=== PATIENT | female | born 1990 | race Caucasian/White ===

== ENCOUNTER 2020-12-29 19:15 | Emergency (ER) | payer MEDICAID ==
[~2020-12-29] VITALS: Ht 162.6 cm; Wt 44.9 kg
[2020-12-29 20:06] LABS: BASOPHILS # (AUTO) 0.1 X10'3 (0-0.2); BASOPHILS % (AUTO) 0.9 % (0-1); EOSINOPHILS # (AUTO) 0.2 X10'3 (0-0.9); EOSINOPHILS % (AUTO) 4.3 % (0-6); HEMOGLOBIN 13.3 g/dl (12.0-16.0); LYMPHOCYTES # (AUTO) 2.3 X10'3 (1.1-4.8); LYMPHOCYTES % (AUTO) 42.5 % (21-51); MEAN CORPUSCULAR HEMOGLOBIN 28.9 PG (27.0-31.0); MEAN CORPUSCULAR HGB CONC 33.2 g/dL (33.0-36.5); MEAN CORPUSCULAR VOLUME 87.2 FL (78-98); MEAN PLATELET VOLUME 8.7 FL (7.4-10.4); MONOCYTES # (AUTO) 0.4 X10'3 (0-0.9); MONOCYTES % (AUTO) 6.6 % (2-12); NEUTROPHILS # (AUTO) 2.5 X10'3 (1.8-7.7); NEUTROPHILS % (AUTO) 45.7 % (42-75); PLATELET COUNT 314 X10'3 (140-440); RED BLOOD COUNT 4.59 X10'6 (4.20-5.60); RED CELL DISTRIBUTION WIDTH 13.3 % (11.5-14.5); WHITE BLOOD COUNT 5.5 X10'3 (4.5-11.0)
[2020-12-29 20:28] LABS: ALANINE AMINOTRANSFERASE 13 U/L (12-78); ALBUMIN 4.3 G/DL (3.4-5.0); ALBUMIN/GLOBULIN RATIO 1.4 (1.1-1.5); ALKALINE PHOSPHATASE 73 IU/L (46-116); ANION GAP 14 (8-16); ASPARTATE AMINO TRANSFERASE 18 U/L (10-37); BILIRUBIN,TOTAL 0.6 MG/DL (0.1-1.0); BLOOD UREA NITROGEN 6 MG/DL (7-18); BUN/CREATININE RATIO 6.5 (6.6-38.0); CALCIUM 8.9 MG/DL (8.5-10.1); CHLORIDE 105 MMOL/L (99-107); CREATININE 0.92 MG/DL (0.40-0.90); ETHANOL < 0.010 GM/DL (0.0-0.010); GLUCOSE 95 MG/DL (70-104); POTASSIUM 3.4 MMOL/L (3.5-5.1); SODIUM 142 MMOL/L (135-145); TOTAL CARBON DIOXIDE 23.5 MMOL/L (24-32); TOTAL PROTEIN 7.3 G/DL (6.4-8.2); eGFR 73 ML/MIN
[2020-12-29 20:29] LABS: ACETAMINOPHEN < 2.0 UG/ML (10-30)
[2020-12-29] MEDS ORDERED: normal saline 1000ML IV soln IVB ONE (20:45)
[2020-12-29 21:53] LABS: URINE HCG NEGATIVE (NEG)
[2020-12-29 22:03] LABS: URINE AMPHETAMINE SCREEN NEGATIVE (Neg); URINE BARBITUATE SCREEN NEGATIVE (Neg); URINE BENZODIAZEPINES SCREEN NEGATIVE (Neg); URINE CANNABINOID SCREEN POSITIVE (Neg); URINE COCAINE SCREEN NEGATIVE (Neg); URINE METHADONE SCREEN NEGATIVE (Neg); URINE OPIATE SCREEN NEGATIVE (Neg); URINE PHENCYCLIDINE SCREEN NEGATIVE (Neg)
--- NOTE | 2020-12-29 23:47 | NUR ---
RECEIVED PATIENT AMBULATING WITH RN FROM MAIN ER ALERT ORIENTED X4,NO COMPLAIN OF PAIN,NO RESPIRATORY DISTRESS,NO SUICIDAL IDEA AT THIS TIME,WILL MONITORED.
[2020-12-30] MEDS ORDERED: VENL75CA61 PO (01:09)
[2020-12-30] MEDS ORDERED: VENL150C58 PO (01:09)
[2020-12-30] MEDS ORDERED: TOPI25TA49 PO (01:09)
--- NOTE | 2020-12-30 06:37 | NUR ---
Patient sleeping on right side. No distress observed. Continue to monitor.
[2020-12-30] MEDS ORDERED: venlafaxine XR 75mg capsule (Q24H) PO SCH ×2 (08:00→21:00)
--- NOTE | 2020-12-30 08:20 | NUR ---
Patient eating breakfast. No distress observed. Continue to monitor.
--- NOTE | 2020-12-30 10:10 | NUR ---
Note raheel in ED - 12/30/20 at 1012 by TREY at bedside. Patient and touchy/feely. No distress observed. Continue to monitor.
--- NOTE | 2020-12-30 10:49 | NUR ---
Patient's boyfrient at bedside. No distress observed. Continue to monitor.
--- NOTE | 2020-12-30 10:55 | NUR ---
TIANA Marino, speaking with patient and boyfriend. Continue to monitor.
--- NOTE | 2020-12-30 12:21 | NUR ---
5150 placed on patient. Patient now sleeping on right side. Continue to monitor.
--- NOTE | 2020-12-30 13:42 | NUR ---
Patient is sitting up and eating lunch. No distress observed.
--- NOTE | 2020-12-30 15:35 | NUR ---
Patient sleeping. No distress observed. Continue to monitor.
[2020-12-30 16:15] LABS: CLARITY,URINE SLIGHTLY CLOUDY (Clear); COLOR,URINE STRAW (Yellow); GLUCOSE, URINE NEGATIVE (Neg); KETONES,URINE NEGATIVE (Neg); LEUKOCYTE ESTERASE ,URINE NEGATIVE (Neg); NITRITES, URINE NEGATIVE (Neg); OCCULT BLOOD,URINE NEGATIVE (Neg); PH,URINE 5.5 (4.8-8.0); PROTEIN,URINE NEGATIVE (Neg); UROBILINOGEN,URINE 0.2 E.U/dL (0.2-1.0)
[2020-12-30 16:20] LABS: UA COLLECTION TYPE CLN CATCH MIDSTREAM
--- NOTE | 2020-12-30 16:20 | NUR ---
Patient sounded like she vomited when she was in the BR. RN asked patient if she vomited (making sure she is not bulemic) and patient states no, she was brushing her tongue and she gagged. Patient did have a tooth brush in her hand. No distress observed. Continue to monitor.
[2020-12-30 16:21] LABS: BACTERIA,URINE FEW /HPF (Neg); MUCUS STRANDS FEW /LPF (Neg); RBC,URINE 0-2 /HPF (0-2); SQUAMOUS EPITHELIAL CELL,UR MODERATE /LPF (FEW); WBC,URINE 0-4 /HPF (0-4)
--- NOTE | 2020-12-30 16:48 | NUR ---
RN faxed TSH and [facility]A results to [facility] and the [facility] office. Patient is sleeping. No distress observed. Contnue to monitor.
[2020-12-30 17:30] VITALS: BP 128/93
--- NOTE | 2020-12-30 20:53 | NUR ---
PT WITH FAMILY MEMBERS AT BEDSIDE WHO LEFT AT 2019. PT NOW RESTING WITH EYES CLOSED AND BLANKETS COVERING TO HER SHOULDERS. MORIAHTER AND RN WITHIN VIEW OF PT AAT.
[2020-12-30] MEDS ORDERED: topiramate 25mg tablet PO SCH (21:00)
== END 2020-12-30 22:03 ==
LOC: ER 19:15
DX: T42.4X2A Poisoning by benzodiazepines, intentional self-harm, initial encounter (principal); Z20.822 Contact with and (suspected) exposure to COVID-19; R94.6 Abnormal results of thyroid function studies; F41.9 Anxiety disorder, unspecified; F32.9 Major depressive disorder, single episode, unspecified; Z88.0 Allergy status to penicillin; Y92.89 Other specified places as the place of occurrence of the external cause
CPT/HCPCS: 36415; 80053; 80305; 80320; 80329; 81001; 81025; 84443; 85025; 87426; 99285; J7030